=== PATIENT | male | born 1955 | race Caucasian/White ===

== ENCOUNTER 2017-11-14 09:43 | Inpatient (IN) | payer MEDICAID ==
[~2017-11-14] VITALS: Ht 182.9 cm; Wt 111.7 kg
[2017-11-14] MEDS ORDERED: AMPICILLIN/SULBACTAM 3 GM in SODIUM CHLORIDE 0.9% 100 ML IVPB ONE (10:30)
[2017-11-14] MEDS ORDERED: SODIUM CHLORIDE FLUSH 10ML SYR IVF ONE (10:30)
[2017-11-14] MEDS ORDERED: DIPH,PERTUSS(ACELL),TET VAC/PF 0.5 ML IM-VACC ONE ×2 (10:30→10:47)
[2017-11-14 10:44] LABS: BASOPHILS # (AUTO) 0.08 x10^3/uL (0-0.1); BASOPHILS % (AUTO) 1 % (0-1); EOSINOPHILS # (AUTO) 0.21 x10^3/uL (0-0.4); EOSINOPHILS % (AUTO) 1 % (1-7); LYMPHOCYTES # (AUTO) 2.46 x10^3/uL (1-3.4); LYMPHOCYTES % (AUTO) 16 % (22-44); MD NO; MEAN CORPUSCULAR HGB CONC 34.3 g/dL (33.2-36.2); MEAN CORPUSCULAR VOLUME 84.5 fL (81-97); MONOCYTES # (AUTO) 0.86 x10^3/uL (0.2-0.8); MONOCYTES % (AUTO) 6 % (2-9); NEUTROPHILS # (AUTO) 12.16 x10^3/uL (1.8-6.8); NEUTROPHILS % (AUTO) 77 % (42-75); PLATELET COUNT 426 x10^3/uL (130-400); RED CELL DISTRIBUTION WIDTH 14.1 % (9.4-14.8)
[2017-11-14 10:48] LABS: ALANINE AMINOTRANSFERASE 36 U/L (12-78); ALBUMIN 3.2 g/dL (3.4-5.0); ANION GAP 7 mmol/L (5-15); CALCIUM 8.4 mg/dL (8.5-10.1); CHLORIDE 106 mmol/L (98-107); CREATININE 0.91 mg/dL (0.7-1.3)
[2017-11-14 10:51] LABS: ALKALINE PHOSPHATASE 98 U/L (45-117); BILIRUBIN,TOTAL 0.4 mg/dL (0.2-1.0); TOTAL PROTEIN 7.7 g/dL (6.4-8.2)
[2017-11-14] MEDS ORDERED: ONDANSETRON ODT 4 MG ONE (11:02)
[2017-11-14] MEDS ORDERED: LORazepam 2 MG/ML, 1ML ONE (11:03)
[2017-11-14] MEDS ORDERED: NICOTINE 14MG/24 HR PATCH.TD24 ONE (11:39)
[2017-11-14] MEDS ORDERED: NICOTINE 14MG/24 HR PATCH.TD24 TD ONE (12:00)
[2017-11-14] MEDS ORDERED: KETOROLAC 30 MG/1 ML IV PRN (12:30)
[2017-11-14] MEDS ORDERED: LABETALOL 5MG/ML, 20ML IVPush PRN (12:30)
[2017-11-14] MEDS ORDERED: SODIUM CHLORIDE FLUSH 10ML SYR IVF PRN (12:30)
[2017-11-14] MEDS ORDERED: BISACODYL 10 MG SUPP PR PRN (12:30)
[2017-11-14] MEDS ORDERED: DOCUSATE 100 MG CAPSULE PO PRN (12:30)
[2017-11-14] MEDS ORDERED: ONDANSETRON 2MG/ML, 2ML IVPush PRN (12:30)
[2017-11-14] MEDS ORDERED: POLYETHYLENE GLYCOL 17 GM PACKET PO PRN (12:30)
[2017-11-14] MEDS ORDERED: PROMETHAZINE 25 MG/ML, 1ML IM PRN (12:30)
[2017-11-14] MEDS ORDERED: hydrALAzine 20 MG/ML, 1ML IVPush PRN (12:30)
[2017-11-14] MEDS: NICOTINE 14MG/24 HR PATCH.TD24 TD SCH (12:30)
[2017-11-14] MEDS ORDERED: morphine SULFATE 10 MG/ML, 1ML IVPush PRN (12:30)
[2017-11-14] MEDS ORDERED: ONDANSETRON ODT 4 MG PO PRN (12:30)
[2017-11-14 13:06] LABS: FREE T4 (FREE THYROXINE) 1.3 ng/dL (0.76-1.46); THYROID STIMULATING HORMONE 0.854 mIU/L (0.358-3.740)
[2017-11-14 13:58] VITALS: BP 136/82
[2017-11-14] MEDS: SODIUM CHLORIDE 0.9% 1,000 ML IV SCH (14:06)
[2017-11-14] MEDS: LACTOBACILLUS CHEW TABLET PO SCH ×3 (14:06→19:54)
[2017-11-14 14:18] LABS: HEMOGLOBIN A1C 6.5 % (4.2-6.3)
[2017-11-14] MEDS: OXYcodone IR 5MG TABLET PO PRN ×2 (14:22→19:15)
[2017-11-14] MEDS: CLINDAMYCIN PMX 600MG/50ML 50 ML IV SCH (16:02)
[2017-11-14 19:06] VITALS: BP 129/77
[2017-11-15] MEDS: CLINDAMYCIN PMX 600MG/50ML 50 ML IV SCH ×3 (00:54→17:16)
[2017-11-15] MEDS: SODIUM CHLORIDE 0.9% 1,000 ML IV SCH (00:54)
[2017-11-15 01:56] VITALS: BP 123/82
[2017-11-15] MEDS: OXYcodone IR 5MG TABLET PO PRN ×4 (05:20→22:53)
[2017-11-15 05:25] LABS: BASOPHILS # (AUTO) 0.05 x10^3/uL (0-0.1); BASOPHILS % (AUTO) 0 % (0-1); EOSINOPHILS # (AUTO) 0.28 x10^3/uL (0-0.4); EOSINOPHILS % (AUTO) 2 % (1-7); LYMPHOCYTES # (AUTO) 2.72 x10^3/uL (1-3.4); LYMPHOCYTES % (AUTO) 19 % (22-44); MD NO; MEAN CORPUSCULAR VOLUME 85.3 fL (81-97); MEAN PLATELET VOLUME 7.9 fL (7.4-10.4); MONOCYTES # (AUTO) 1.17 x10^3/uL (0.2-0.8); MONOCYTES % (AUTO) 8 % (2-9); NEUTROPHILS # (AUTO) 10.49 x10^3/uL (1.8-6.8); NEUTROPHILS % (AUTO) 71 % (42-75); PLATELET COUNT 400 x10^3/uL (130-400); RED BLOOD COUNT 4.51 x10^6/uL (4.38-5.82); RED CELL DISTRIBUTION WIDTH 14.5 % (9.4-14.8)
[2017-11-15 05:35] LABS: CHLORIDE 105 mmol/L (98-107)
[2017-11-15 05:43] LABS: ALANINE AMINOTRANSFERASE 34 U/L (12-78); ALBUMIN 2.8 g/dL (3.4-5.0); ALKALINE PHOSPHATASE 87 U/L (45-117); ANION GAP 8 mmol/L (5-15); BILIRUBIN,TOTAL 0.3 mg/dL (0.2-1.0); CALCIUM 8.3 mg/dL (8.5-10.1); CHOL/HDL RATIO 4.7; CHOLESTEROL, TOTAL 128 mg/dL (140-239); CREATININE 0.74 mg/dL (0.7-1.3); HDL CHOL % 21 % (26-37); HDL CHOLESTEROL (DIRECT) 27 mg/dL (40-60); LDL CHOLESTEROL,CALCULATED 75 mg/dL (54-169); LDL/HDL RATIO 2.8 (0.5-3.0); TOTAL PROTEIN 7.2 g/dL (6.4-8.2); TRIGLYCERIDES 128 mg/dL (50-200); VLDL CHOLESTEROL 26 mg/dL (0-25)
[2017-11-15] MEDS: LACTOBACILLUS CHEW TABLET PO SCH ×3 (08:00→20:47)
[2017-11-15 08:19] VITALS: BP 124/81
[2017-11-15] MEDS: ACETAMINOPHEN 325 MG TABLET PO PRN ×2 (09:19→20:48)
[2017-11-15] MEDS: NICOTINE 14MG/24 HR PATCH.TD24 TD SCH (13:11)
[2017-11-15 13:35] VITALS: BP 115/72
[2017-11-15 18:21] VITALS: BP 129/79
[2017-11-16] MEDS: CLINDAMYCIN PMX 600MG/50ML 50 ML IV SCH ×2 (00:40→07:55)
[2017-11-16 01:36] VITALS: BP 106/58
[2017-11-16] MEDS: ACETAMINOPHEN 325 MG TABLET PO PRN (03:58)
[2017-11-16] MEDS: OXYcodone IR 5MG TABLET PO PRN (04:04)
[2017-11-16 07:05] VITALS: BP 120/78
[2017-11-16] MEDS: LACTOBACILLUS CHEW TABLET PO SCH (07:55)
[2017-11-19] MEDS ORDERED: IBUPROFEN 600 MG TABLET PO PRN (12:30)
== END 2017-11-16 11:03 | disposition left against medical advice (07) | DRG 602 ==
LOC: ED 10:47 → EDIP 11:21 → 3NE 12:35
PROVIDERS: ADMIT Hospitalist; ATTEND Internal Medicine
DX: L03.011 Cellulitis of right finger (principal); E43 Unspecified severe protein-calorie malnutrition; L03.113 Cellulitis of right upper limb; Z53.21 Procedure and treatment not carried out due to patient leaving prior to being seen by health care provider; F17.210 Nicotine dependence, cigarettes, uncomplicated; M19.90 Unspecified osteoarthritis, unspecified site; Z68.33 Body mass index [BMI] 33.0-33.9, adult; Z71.6 Tobacco abuse counseling
CPT/HCPCS: 36415; 80053; 80061; 83036; 83605; 83735; 84145; 84439; 84443; 85025; 87040; 90471; 90715; 96365; 99285; G0378; J0295; J7030

== ENCOUNTER 2018-08-24 13:24 | Emergency (ER) | payer MEDICAID ==
[~2018-08-24] VITALS: Ht 182.9 cm; Wt 110.0 kg
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
--- NOTE | 2018-08-24 14:00 | NUR ---
Report to Felipe SMITH.
[2018-08-24 14:16] LABS: BASOPHILS # (AUTO) 0.04 x10^3/uL (0-0.1); BASOPHILS % (AUTO) 0 % (0-1); EOSINOPHILS # (AUTO) 0.06 x10^3/uL (0-0.4); EOSINOPHILS % (AUTO) 1 % (1-7); LYMPHOCYTES # (AUTO) 2.73 x10^3/uL (1-3.4); LYMPHOCYTES % (AUTO) 30 % (22-44); MD NO; MEAN CORPUSCULAR HEMOGLOBIN 28.5 pg (27.5-34.5); MEAN CORPUSCULAR HGB CONC 33.1 g/dL (33.2-36.2); MEAN CORPUSCULAR VOLUME 86.2 fL (81-97); MEAN PLATELET VOLUME 7.9 fL (7.4-10.4); MONOCYTES # (AUTO) 0.49 x10^3/uL (0.2-0.8); MONOCYTES % (AUTO) 5 % (2-9); NEUTROPHILS # (AUTO) 5.91 x10^3/uL (1.8-6.8); NEUTROPHILS % (AUTO) 64 % (42-75); PLATELET COUNT 364 x10^3/uL (130-400); RED BLOOD COUNT 5.27 x10^6/uL (4.38-5.82); RED CELL DISTRIBUTION WIDTH 14.6 % (9.4-14.8)
--- NOTE | 2018-08-24 14:21 | NUR ---
RECEIVED REPORT FROM NAHOMI SMITH, PLAN OF CARE DISCUSSED. PT RESTING, COOPERATIVE, REQUESTED FOOD. MEAL ORDERED.
[2018-08-24 14:23] LABS: ALANINE AMINOTRANSFERASE 48 U/L (12-78); ALBUMIN 3.5 g/dL (3.4-5.0); ANION GAP 10 mmol/L (5-15); CALCIUM 8.1 mg/dL (8.5-10.1); CHLORIDE 106 mmol/L (98-107); SALICYLATE LEVEL 3.2 mg/dL (2.8-20.0)
[2018-08-24 14:25] LABS: CREATININE 0.79 mg/dL (0.7-1.3)
[2018-08-24 14:26] LABS: ALKALINE PHOSPHATASE 80 U/L (45-117); BILIRUBIN,TOTAL 0.4 mg/dL (0.2-1.0); TOTAL PROTEIN 7.1 g/dL (6.4-8.2)
[2018-08-24] MEDS ORDERED: SODIUM CHLORIDE 0.9% 1,000ML IVBOLUS ONE (14:30)
[2018-08-24 15:33] VITALS: BP 125/80
--- NOTE | 2018-08-24 16:25 | NUR ---
PT ATE 100% MEAL, SLEEPING RESP EVEN AND UNLABORED, O2 AT 2LNC DUE TO DESAT WHEN SLEEPING TO 87&
--- NOTE | 2018-08-24 17:19 | NUR ---
PT SLEEPING, RESP EVEN AND UNLABORED.
--- NOTE | 2018-08-24 17:55 | NUR ---
REPORT TO JERI SMITH, PLAN OF CARE DISCUSSED
--- NOTE | 2018-08-24 17:58 | NUR ---
REPORT FROM WEST SMITH
--- NOTE | 2018-08-24 19:04 | NUR ---
PT GIVEN DINNER TRAY, PT RESTING IN GURNEY, PT THREATENING TO LEAVE. PT EDUACTION DONE ON WHY PT NEEDS TO STAY AT TTHIS TIME. PT AGREES. URINE SAMPLE PROVIDED
--- NOTE | 2018-08-24 20:10 | NUR ---
PT REQUESTING WATER, WATER PROVIDED
[2018-08-24 20:23] LABS: AMPHETAMINE SCREEN, URINE Negative (Negative); BARBITURATE SCREEN, URINE Negative (Negative); BENZODIAZEPINE SCREEN, URINE Negative (Negative); CANNABINOID SCREEN, URINE Negative (Negative); COCAINE SCREEN, URINE Negative (Negative); METHADONE SCREEN, URINE Negative (Negative); OPIATE SCREEN, URINE Negative (Negative)
--- NOTE | 2018-08-24 20:34 | NUR ---
PT RESTING IN RNEY ON 2L O2 AND SAT MONITOR. SITTER AT DOORWAY
--- NOTE | 2018-08-24 21:32 | NUR ---
PT RESTING IN [facility], REQUESTING TO LEAVE. REPEAT BA 0.00, NOTIFIED
== END 2018-08-24 22:13 | disposition home or self-care (01) ==
LOC: ED 13:41
DX: F10.120 Alcohol abuse with intoxication, uncomplicated (principal); F17.200 Nicotine dependence, unspecified, uncomplicated
CPT/HCPCS: 36415; 80053; 80307; 85025; 99283; J7030